=== PATIENT | female | born 1975 | race American Indian/Alaskan Native ===

== ENCOUNTER 2018-04-17 08:23 | Outpatient (CLI) | payer MEDICAID ==
--- NOTE | 2018-04-17 13:54 | Ultrasound Report ---
THYROID ULTRASOUND:04/17/18 08:23:00 CLINICAL: Enlarged thyroid. FINDINGS: High-resolution ultrasound demonstrated an enlarged multinodular thyroid. The right lobe measures 5.8 x 2.4 x 2.8cm. The left lobe measures 5.9 x 2.3 x 2.2 cm. The isthmus measures 0.7 cm AP thickness. A single complex predominantly solid nodule of the right thyroid is located in the lower pole and measures 2.4 x 2.2 x 2.1 cm. It contains numerous small cysts as well as a predominant solid component. A complex predominately solid nodule of the left lower pole measures 1.9 x 1.5 x 2.1 cm and has similar morphology as the right lower pole nodule. Benign left upper pole cysts measure 4 x 3 x 5 mm and 4 x 3 x 3 mm. IMPRESSION: Enlarged multinodular thyroid. Predominantly solid bilateral lower pole nodules are probably benign with similar morphology. Recommend followup ultrasound in 6 months to reevaluate the size of nodules.
== END 2018-04-17 08:24 | disposition home or self-care (01) ==
LOC: SPVWC 08:23
DX: E04.2 Nontoxic multinodular goiter (principal)
CPT/HCPCS: 76536